=== PATIENT | female | born 1995 | race Caucasian/White ===

== ENCOUNTER 2020-01-10 13:19 | Emergency (ER) | payer OTHER ==
[~2020-01-10] VITALS: Ht 162.6 cm; Wt 57.2 kg
[~2020-01-10 13:19] MED LIST: SYNTHROID50 MCG PO; [UNRECOGNIZED DRUG - REMARK]
[2020-01-10] MEDS ORDERED: PEPCID AC20 MG PO (18:06)
[2020-01-10] MEDS ORDERED: LEVSIN/SL0.125 MG SL (18:06)
[2020-01-10] MEDS ORDERED: CARAFATE1 GM PO (18:06)
== END 2020-01-10 18:13 | disposition home or self-care (01) ==
LOC: ER 13:19
DX: R10.13 Epigastric pain (principal)

== ENCOUNTER 2021-12-16 10:45 | Emergency (ER) | payer OTHER ==
[~2021-12-16] VITALS: Ht 162.6 cm; Wt 59.0 kg
[~2021-12-16 10:45] MED LIST changes: +CARAFATE1 GM PO; +LEVSIN/SL0.125 MG SL; +PEPCID AC20 MG PO
[2021-12-16] MEDS ORDERED: SYNTHROID100 MCG (11:09)
== END 2021-12-16 14:04 | disposition home or self-care (01) ==
LOC: ER 10:45
DX: B34.9 Viral infection, unspecified (principal); E03.9 Hypothyroidism, unspecified; J45.909 Unspecified asthma, uncomplicated

== ENCOUNTER → 2021-12-25 08:00 | Outpatient (CLI) | payer OTHER ==
[~2021-12-25] VITALS: Ht 162.6 cm; Wt 56.7 kg
[~2021-12-25 08:00] MED LIST changes: +SYNTHROID100 MCG; +SYNTHROID150 MCG PO
== END | disposition home or self-care (01) ==
LOC: ADM 07:00 → LAB 08:00 → CIR.AMB 12-28 08:00 → EDSTATUS 12-28 08:00 → CIR.AMB 12-28 09:20
PROVIDERS: ATTEND Otolaryngology Otology & Neurotology
DX: H60.41 Cholesteatoma of right external ear (principal); H71.21 Cholesteatoma of mastoid, right ear; D23.21 Other benign neoplasm of skin of right ear and external auricular canal; Z03.818 Encounter for observation for suspected exposure to other biological agents ruled out

== ENCOUNTER 2022-04-20 17:26 | Emergency (ER) | payer OTHER ==
[~2022-04-20] VITALS: Ht 162.6 cm; Wt 54.4 kg
== END 2022-04-20 21:27 | disposition home or self-care (01) ==
LOC: ER 17:26
DX: H66.91 Otitis media, unspecified, right ear (principal); H60.41 Cholesteatoma of right external ear

== ENCOUNTER 2022-05-10 07:29 | Day surgery (SDC) | payer OTHER ==
[~2022-05-10] VITALS: Ht 162.6 cm; Wt 56.7 kg
[2022-05-10] MEDS ORDERED: CEPHALEXIN500 M1 PO (14:53)
[2022-05-10] MEDS ORDERED: CILOXAN5 ML OTIC (14:53)
== END 2022-05-10 17:40 | disposition home or self-care (01) ==
LOC: CIR.AMB 07:29
PROVIDERS: ATTEND Otolaryngology Otology & Neurotology
DX: H71.21 Cholesteatoma of mastoid, right ear (principal); D23.21 Other benign neoplasm of skin of right ear and external auricular canal; H90.11 Conductive hearing loss, unilateral, right ear, with unrestricted hearing on the contralateral side; Z20.822 Contact with and (suspected) exposure to COVID-19; F12.90 Cannabis use, unspecified, uncomplicated; E03.9 Hypothyroidism, unspecified